=== PATIENT | male | born 1930 | race Caucasian/White ===

== ENCOUNTER 2018-10-13 13:11 | Outpatient (CLI) | END 2018-10-13 13:12 | disposition home or self-care (01) | LOC: AMBL 13:11 | PROVIDERS: ATTEND Emergency Medicine | DX: R41.82 Altered mental status, unspecified (principal); R05 Cough; R50.9 Fever, unspecified; R09.89 Other specified symptoms and signs involving the circulatory and respiratory systems; R00.0 Tachycardia, unspecified; R40.2421 Glasgow coma scale score 9-12, in the field [EMT or ambulance] ==